=== PATIENT | male | born 1985 | race Caucasian/White ===

== ENCOUNTER 2023-03-25 08:26 | Observation (INO) ==
[2023-03-23 16:21] LABS: Basophils # (Auto) 0.06 K/mcL (0.00-0.30); Basophils % (Auto) 0.8 % (0.0-2.0); Eosinophils # (Auto) 0.11 K/mcL (0.00-0.70); Eosinophils % (Auto) 1.5 % (0.0-7.0); Hematocrit 47.4 % (40.1-51.0); Hemoglobin 16.1 g/dL (13.7-17.5); Lymphocytes # (Auto) 2.66 K/mcL (1.50-4.80); Lymphocytes % (Auto) 36.1 % (15.5-49.0); Mean Platelet Volume 9.3 fL (8.8-12.5); Monocytes # (Auto) 0.43 K/mcL (0.10-0.90); Monocytes % (Auto) 5.8 % (1.0-12.0); Platelet Count 280 K/mcL (140-440); RBC 5.21 M/mcL (4.63-6.08); Red Cell Distribution Width 12.8 % (11.5-14.5); WBC 7.4 K/mcL (4.5-11.0)
[2023-03-23 16:40] LABS: Partial Thromboplastin Time 24.9 sec (20.0-37.0); Prothrombin Time 13.4 sec (11.9-14.5)
[2023-03-23 16:40] LABS: ALT/SGPT 28 U/L (<40); AST/SGOT 24 U/L (<40); Albumin 4.3 gm/dL (3.2-5.2); Albumin/Globulin Ratio 1.3 (1.0-2.3); Alkaline Phosphatase 67 U/L (39-117); Bilirubin,Total 0.6 mg/dL (0.1-1.0); Blood Urea Nitrogen 12 mg/dL (6-20); Calcium 9.8 mg/dL (8.6-10.4); Carbon Dioxide 26 mmol/L (22-30); Chloride 101 mmol/L (96-108); Globulin 3.3 gm/dL (2.2-3.7); Glomerular Filtration Rate 108; Glucose 100 mg/dL (70-105)
[~2023-03-25 08:26] MED LIST: VANCOMYCIN 1,500 MG in 0.9 % SODIUM CHLORIDE 500 ML IV SCH
[2023-03-25] MEDS ORDERED: LEVOFLOXACIN 750 MG/150 ML BAG IV ONE (09:42)
[2023-03-25] MEDS ORDERED: fentaNYL 100 MCG/2 ML VIAL IV ONE ×2 (11:16→13:10)
[2023-03-25] MEDS ORDERED: ONDANSETRON 4 MG/2 ML VIAL ONE (11:16)
[2023-03-25] MEDS ORDERED: ROCURONIUM 10 MG/ML ML IV ONE (11:16)
[2023-03-25] MEDS ORDERED: PROPOFOL 200 MG/20 ML VIAL IV ONE ×2 (11:16→12:56)
[2023-03-25] MEDS ORDERED: GENTAMICIN SULFATE 800 MG/20 ML VIAL IR ONE (11:37)
[2023-03-25] MEDS ORDERED: VANCOMYCIN 1 GM VIAL TOPICAL SCH (11:45)
[2023-03-25] MEDS ORDERED: HYDROmorphone 1 MG/ML SYRINGE ONE (12:23)
[2023-03-25] MEDS ORDERED: SUGAMMADEX SODIUM 200 MG/2 ML VIAL IV ONE (12:41)
[2023-03-25] MEDS ORDERED: NALOXONE HCL 0.4 MG/ML VIAL IV PRN (13:09)
[2023-03-25] MEDS ORDERED: ONDANSETRON 4 MG/2 ML VIAL IV PRN ×2 (13:09→14:56)
[2023-03-25] MEDS ORDERED: HYDROmorphone 0.5 MG/0.5 ML SYRINGE IV PRN (13:09)
[2023-03-25] MEDS ORDERED: IPRATROPIUM/ALBUTEROL 3 ML AMPUL.NEB NEB PRN (13:09)
[2023-03-25] MEDS ORDERED: KETOROLAC 30 MG/ML VIAL ONE (13:09)
[2023-03-25] MEDS: fentaNYL 100 MCG/2 ML VIAL IV PRN ×2 (13:20→13:23)
[2023-03-25] MEDS ORDERED: oxyCODONE IR 5 MG TABLET PO ONE (14:07)
[2023-03-25] MEDS ORDERED: ALPRAZolam 0.5 MG TABLET PO PRN (14:56)
[2023-03-25] MEDS ORDERED: HYDROmorphone 1 MG/ML SYRINGE IV PRN (15:01)
[2023-03-25] MEDS: 0.9 % SODIUM CHLORIDE 1,000 ML IV SCH (17:14)
[2023-03-25] MEDS: PANTOPRAZOLE 40 MG VIAL IV SCH (17:15)
[2023-03-25] MEDS: ACETAMINOPHEN 1,000 MG/100 ML BAG IV SCH ×2 (17:16→22:20)
[2023-03-25] MEDS: oxyCODONE IR 5 MG TABLET PO PRN (19:30)
[2023-03-26] MEDS: ACETAMINOPHEN 1,000 MG/100 ML BAG IV SCH ×4 (02:35→20:09)
[2023-03-26] MEDS: oxyCODONE IR 5 MG TABLET PO PRN ×5 (02:36→20:09)
[2023-03-26] MEDS: PANTOPRAZOLE 40 MG VIAL IV SCH ×2 (08:03→16:25)
[2023-03-26] MEDS: 0.9 % SODIUM CHLORIDE 1,000 ML IV SCH ×2 (12:10→16:25)
[2023-03-27] MEDS: oxyCODONE IR 5 MG TABLET PO PRN ×4 (00:41→14:00)
[2023-03-27] MEDS: ACETAMINOPHEN 1,000 MG/100 ML BAG IV SCH ×2 (02:49→09:37)
[2023-03-27] MEDS: 0.9 % SODIUM CHLORIDE 1,000 ML IV SCH (07:35)
[2023-03-27] MEDS: PANTOPRAZOLE 40 MG VIAL IV SCH (07:35)
== END 2023-03-27 15:24 | disposition home or self-care (01) ==
LOC: MEDSUR 08:26 → SUR 08:26 → MEDSUR 16:41
PROVIDERS: ADMIT Family Medicine Adult Medicine; ATTEND Family Medicine Adult Medicine